=== PATIENT | female | born 1980 | race Caucasian/White ===

== ENCOUNTER 2020-02-28 14:28 | Emergency (ER) | payer SELFPAY ==
[~2020-02-28] VITALS: Ht 162.6 cm; Wt 65.9 kg
[~2020-02-28 14:28] MED LIST: CARAFATE 1GM1 G PO; MAXALT10 MG; PRILOSEC10 MG PO; PROMETHAZINE12.5 M5 PO
[2020-02-28 14:33] VITALS: BP 129/73; PULSE 90; TEMP 98.8
[2020-02-28] MEDS ORDERED: BACTRIM DS 8001 TAB PO (15:29)
[2020-02-28] MEDS ORDERED: CEPHALEXIN500 M1 PO (15:29)
== END 2020-02-28 15:43 | disposition home or self-care (01) ==
LOC: COL.ER 14:28
DX: N61.0 Mastitis without abscess (principal)

== ENCOUNTER 2020-04-24 12:04 | Emergency (ER) | payer SELFPAY ==
[~2020-04-24] VITALS: Ht 162.6 cm; Wt 65.9 kg
[~2020-04-24 12:04] MED LIST changes: +BACTRIM DS 8001 TAB PO; +CEPHALEXIN500 M1 PO
[2020-04-24 12:11] VITALS: TEMP 98.4
[2020-04-24] MEDS ORDERED: PROZAC 20MG20 MG PO (12:16)
[2020-04-24] MEDS ORDERED: ATARAX50 MG PO (12:16)
[2020-04-24 12:55] LABS: COLLECTION METHOD CLEAN CATCH
[2020-04-24 13:07] LABS: HEMATOCRIT 41.2 % (37.0-47.0); HEMOGLOBIN 13.8 g/dl (12.5-16.0); MEAN CELL VOLUME 87 fl (80.0-100.0); MEAN CORPUSCULAR HEMOGLOBIN 29 pg (27.0-31.0); MEAN CORPUSCULAR HGB CONC 34 g/dl (33.0-37.0); MEAN PLATELET VOLUME 9.5 fl (7.4-10.4); PLATELET COUNT 273 K/mm3 (130-400); RED BLOOD COUNT 4.74 M/mm3 (4.10-5.30); REDCELL DISTRIBUTION WIDTH-CV 13.2 % (11.5-14.5)
[2020-04-24 13:17] LABS: BILIRUBIN,TOTAL 0.9 mg/dL (0.0-1.0); C-REACTIVE PROTEIN 7.3 mg/dL (0.0-0.9); CALCIUM 9.1 mg/dL (8.4-10.2); CREATININE, serum 0.66 (0.52-1.25); POTASSIUM 3.7 mmol/L (3.4-5.0); TOTAL PROTEIN 7.8 gm/dL (6.4-8.2)
[2020-04-24 13:21] LABS: MUCOUS Present /lpf; PH 6 (5-8); URINE APPEARANCE Cloudy; URINE BACTERIA Occasional /hpf; URINE BILIRUBIN Negative (NEGATIVE); URINE BLOOD 1+ (NEGATIVE); URINE COLOR Yellow; URINE GLUCOSE Negative (NEGATIVE); URINE KETONE Negative (NEGATIVE); URINE LEUKOCYTE ESTERASE 3+ (NEGATIVE); URINE NITRATE Positive (NEGATIVE); URINE PROTEIN(semi-quant) 1+ (NEGATIVE); URINE UROBILINOGEN >=4.0 mg/dL (NEGATIVE)
[2020-04-24] MEDS ORDERED: CIPRO 500MG TA500 MG PO (15:16)
[2020-04-24 15:21] LABS: BAND 7 % (0-10); LYMPHOCYTE 13 % (20.0-51.0); NEUTROPHILS 65 % (42.0-75.2); PLATELET ESTIMATE NORMAL (NORMAL)
[2020-04-24 15:35] VITALS: BP 128/80; PULSE 82
== END 2020-04-24 15:45 | disposition home or self-care (01) ==
LOC: COL.ER 12:04
PROVIDERS: Nurse Practitioner Primary Care
DX: N12 Tubulo-interstitial nephritis, not specified as acute or chronic (principal); F41.9 Anxiety disorder, unspecified; F17.210 Nicotine dependence, cigarettes, uncomplicated; Z90.49 Acquired absence of other specified parts of digestive tract
CPT/HCPCS: J0696; J1170; J2550; J7030; Q9967